=== PATIENT | female | born 1945 | race Caucasian/White ===

== ENCOUNTER 2016-09-25 23:19 | Emergency (ER) | payer MEDICARE, OTHER ==
[~2016-09-25] VITALS: Ht 165.1 cm; Wt 154.6 kg
[2016-09-25 23:24] VITALS: BP 181/68; PULSE 93; RESP 16; O2SAT 94
--- NOTE | 2016-09-25 23:45 | ED.REPORT ---
HPI-General Illness Date of Service Sep 25, 2016 ED Provider: Dr. Ozuna Pt is a 71 year old female with a hx of DM, thyroid, CHF, COPD, asthma, and chronic knee pain presenting to the ED complaining of bilateral knee pain worsened in the last few weeks. Associated symptoms include LE swelling. She states that she has fallen 3 times in the last month, and that the pain is so bad she doesn't want to get out of bed. She has been diagnosed with arthritis in both knees, but does not believe that this is all it is. Denies any fever, symptoms of gout, or any head injury. Nursing Notes Stated Complaint: BILATERAL KNEE PAIN Chief Complaint: General Complaint Nursing Notes Reviewed: Yes Allergies: Coded Allergies: lisinopril (Verified Allergy, Mild, COUGH, 09/25/16) lincomycin (Verified Allergy, Unknown, 09/25/16) Uncoded Allergies: LEVITHYROZINE (Allergy, Severe, THROAT, 09/25/16) BACTRIUM (Allergy, Intermediate, DIARRHEA, ITCHING, RASH, 09/25/16) KENLOG (Allergy, Intermediate, ITCHING, 09/25/16) LEVIQUIN (Allergy, Intermediate, 09/25/16) METFORMIM (Allergy, Intermediate, DIARRHEA, 09/25/16) YELLOW DYES (Allergy, Intermediate, RASH, 09/25/16) GLYBURID (Allergy, Mild, DIARRHEA, 09/25/16) SULFA (Allergy, Mild, 09/25/16) ZITHROMYCIN (Allergy, Mild, HIVES, 09/25/16) Scheduled Famotidine (Pepcid) 20 Mg Tablet 20 MG PO BID Sulindac (Sulindac) 200 Mg Tablet 200 MG PO BID Scheduled PRN Naproxen (Naprosyn) 500 Mg Tablet 500 MG PO BID PRN PRN For Pain General Time Seen by MD: 23:45 Chief Complaint Other (Bilateral knee pain) Hx Obtained From: Patient Arrived By: Walk-in Sudden in Onset?: No Onset Occurred: More than a week ago... (>6 months) Symptom Duration: Waxes and wanes Location: : Knee left: Knee right Quality: Painful Severity: Current: Severe Severity: Maximum: Severe Recent Healthcare: No recent doctor visit, No recent hospitalization Similar Sx Previous: Yes Past Medical History Past Medical History Thyroid Arthritis Psoriasis Reports: Asthma, COPD, Congestive heart failure, Diabetes mellitus Past Surgical History denies Smoking History Unknown if Ever Smoker Ambulatory Status Walker Review of Systems Full Review of Systems Constitutional: Denies: Fever Musculoskeletal: Reports: Extremity swelling, Joint pain, Denies: Extremity pain Skin: Denies Rash Neurologic: Denies: Headache Complete sys rev & neg: except as marked. Physical Exam Vital Signs Vital Signs Date Time Temp Pulse Resp B/P Pulse Ox O2 Delivery O2 Flow Rate FiO2 09/26/16 02:43 82 20 149/62 96 Room Air 09/25/16 23:24 36.6 93 16 181/68 94 Room Air Initial VS: Reviewed Head / Eyes: Atraumatic, Normocephalic, PERRL ENT: Mucous membranes moist, Conjunctiva normal, No scleral icterus Neck: Supple, Non-tender, Full range of motion Respiratory: Breath sounds normal, Clear to auscultation, No respiratory distress Cardiovascular: Regular rate & rhythm, Heart sounds normal, Intact distal pulses Abdomen / GI: Soft, Non-tender, No guarding, No rebound, No distention Skin: Warm, Dry, No cyanosis Neurologic: Alert, Oriented, Nonfocal Psychiatric: Mood/affect normal, Behavior normal, Normal thought content General/Constitutional: Awake, Alert Appearance / Presentation: Positive: Obese, morbidly Wrist / Hand: Atraumatic, Inspection NL, No deformity, Neurologic intact, Vascular intact No synnovitis of knuckles. Distal joint deformity consistent with osteoarthritis. Lower Extremity / Pelvis / MS: No deformity, Neurologic intact, Vascular intact Bilateral 2+ edema in the legs. No knee effusions. Knees held in hyperextended posture. ROM guarded. Interpretation & Diagnostics Lab Results Interpretation Result Diagram: 09/26/16 0038 09/26/16 0038 Test 09/26/16 00:38 09/26/16 01:17 09/26/16 01:25 White Blood Count 10.8th/mm3 (3.8-10.1) Red Blood Count 4.11mil/mm3 (3.90-5.20) Hemoglobin 12.6g/dL (12.0-15.6) Hematocrit 39.1% (35.0-46.0) Mean Corpuscular Volume 95.1fL (81-100) Mean Corpuscular Hemoglobin 30.7pg (27.0-35.0) Mean Corpuscular Hemoglobin Concent 32.2% (32.0-37.0) Red Cell Distribution Width 12.7% (12.3-15.4) Platelet Count 218bil/L (150-400) Neutrophils (%) (Auto) 63.2% (40-74) Lymphocytes (%) (Auto) 25.3% (14-46) Monocytes (%) (Auto) 9.7% (4-12) Eosinophils (%) (Auto) 1.3% (0-5) Basophils (%) (Auto) 0.3% (0-3) Erythrocyte Sedimentation Rate 45mm/hr (0-40) Sodium Level 141mEq/L (134-144) Potassium Level 4.0mEq/L (3.5-5.2) Chloride Level 100mEq/L (97-108) Carbon Dioxide Level 25mmol/L (18-29) Blood Urea Nitrogen 17mg/dL (8-27) Creatinine 0.81mg/dL (0.57-1.00) Estimat Glomerular Filtration Rate 100mL/min (>59) Glucose Level 120mg/dL (60-99) Uric Acid 6.2mg/dL (2.6-7.2) Calcium Level 9.3mg/dL (8.5-10.1) Magnesium Level 1.9mg/dL (1.6-2.6) Total Bilirubin 0.8mg/dL (0.0-1.2) Aspartate Amino Transf (AST/SGOT) 38U/L (0-50) Alanine Aminotransferase (ALT/SGPT) 34U/L (0-32) Alkaline Phosphatase 100U/L (25-165) Pro-B-Type Natriuretic Peptide 460.2pg/mL (0-301) Total Protein 7.4g/dL (6.4-8.4) Albumin 3.6g/dL (3.4-5.0) Thyroid Stimulating Hormone (TSH) 0.046uIU/mL (0.450-4.500) Free Thyroxine 1.24ng/dL (0.82-1.77) Hold Rivera Top Tube Received (Received) Urine Color Dark yellow (YELLOW) Urine Appearance Slightly cloudy Urine pH 5.5 (5.0-8.0) Urine Specific [place] 1.027 (1.003-1.035) Urine Protein Tracemg/dL (NEG,TRACE) Urine Glucose (UA) Negativemg/dL (NEGATIVE) Urine Ketones Negativemg/dL (NEGATIVE) Urine Occult Blood Negative (NEGATIVE) Urine Nitrite Negative (NEGATIVE) Urine Bilirubin Negative (NEGATIVE) Urine Urobilinogen Normalmg/dL (NORMAL) Urine Leukocyte Esterase Negative (NEGATIVE) Urine RBC 0-2/hpf (0-2) Urine WBC 0-5/hpf (0-5) Urine Epithelial Cells Moderate/hpf (NONE-MOD) Urine Crystals None seen (NONE SEEN) Urine Bacteria Few/hpf (NONE-FEW) Urine Hyaline Casts None/lpf (NONE) Urine Granular Casts None seen (NONE SEEN) Urine Waxy Casts None seen (NONE SEEN) Urine Red Blood Cell Casts None seen (NONE SEEN) Urine White Blood Cell Casts None seen (NONE SEEN) Urine Mucus Present (None Seen) Urine Trichomonas None seen (NONE SEEN) Urine Yeast None (NONE SEEN) Urinalysis Comment None Urine Culture Reflexed Not indicated X-Ray Interpretation Xray Interpretation: Right Knee: Medial compartment narrowed, medial collateral ligament spurring. Spurring into ACL and PCL. Severe osteoarthritis. Left Knee: Not as spurred as right knee. Right hand: No erosion along joint lines. Looks like osteoarthritis. Mild cystic changes. Nothing suggestive of rheumatoid arthritis. X-Ray Ordered: Hand right, Knee right, Knee left Interpretation / Wet Read by: Wet read ED physician Re-Eval/Medical Decision Med Decision/Clinical Course 71-year-old female with severe knee pain, apparently due to osteoarthritis. She has multiple complicating issues including morbid obesity, diabetes, psoriasis without diagnosed psoriatic arthritis, and chronic leg edema. X-rays of her knees today reveal medial compartment narrowing bilaterally with moderate spurring. Hand films have mild cystic changes on a single IP joint and no other findings of other than osteoarthritic changes. She is referred to her PCP, with appointment already arranged. She is referred also to the orthopedic office for evaluation. Her situation is complex with her obesity and her edema. However, her pain is limiting her activity severely enough that weight control has again become an issue. She might conceivably benefit from bariatric surgery followed by knee surgery, and we discussed this in some detail. Her peripheral edema is mild to moderate at this point, but she does occasionally develop significant skin changes. Recommended mild compression hose, elevation, and again stressed the importance of weight loss to reduce the back pressure on her venous and lymph return. She improved here as far as her pain with Toradol. She is discharged with a prescription for sulindac, as the NSAID less likely to cause worsening peripheral edema. Time of Eval: 02:03 Patient Status: Condition improved Re-Evaluation/Progress Note: Pt feeling much better after Toradol. Discussed x ray results and plan for discharge. Pt understands and agrees with plan. Counseled Regarding: Diagnosis, Lab results, Need for follow-up, When/why to return to ED Discharge & Departure Primary Impression: Osteoarthritis Osteoarthritis location: multiple joints Osteoarthritis type: unspecified Qualified Code: M15.9 - Polyosteoarthritis, unspecified Additional Impressions: Morbid obesity Obesity type: unspecified obesity type Qualified Code: E66.01 - Morbid ( severe) obesity due to excess calories Psoriasis Peripheral edema Knee pain Laterality: unspecified laterality Chronicity: unspecified Qualified Code: M25.569 - Pain in unspecified knee Diabetes type 2, controlled Diabetes mellitus complication status: without complication Diabetes mellitus termite control technician insulin use: unspecified half-way insulin use status Qualified Code: E11.9 - Type 2 diabetes mellitus without complications Disposition: Home Discharge Condition All VS Reviewed: Yes Condition: Improved Patient Instructions: Arthritis (ED) Additional Instructions: Use your walker always. Be very careful to avoid falling. Go through the house and eliminate trip hazards. Begin using compressive stockings such as soccer hose during the day. Elevate her legs whenever possible. Begin sulindac twice daily with food. Alternatively, you can use Naprosyn twice daily, also with food. Take Pepcid twice daily as long as her on sulindac or Naprosyn Follow-up with your scheduled appointment. Follow-up also with orthopedics in the office. Return if any immediate issues. All of your labs will be available for your doctor at the time of your visit. Referrals: Daniel Willoughby DO [facility] [employer] Attestation Portions of this note were transcribed by Gay [place]. I, Dr. Ozuna personally performed the history, physical exam and medical decision-making; I reviewed and confirmed the accuracy of the information in the transcribed note. Signed by: Shan Santiago, 09/26/2016 at 0243. copies to: Daniel Willoughby DO; [facility] Roger Ozuna MD Sep 25, 2016 23:45 GAY [place] Sep 25, 2016 23:54
[2016-09-26 00:55] LABS: BASOPHILS % (AUTO) 0.3 % (0-3); EOSINOPHILS % (AUTO) 1.3 % (0-5); MONOCYTES % (AUTO) 9.7 % (4-12); Mean Corpuscular Hemoglobin 30.7 pg (27.0-35.0); Mean Corpuscular Volume 95.1 fL (81-100); NEUTROPHILS % (AUTO) 63.2 % (40-74); Platelet Count 218 bil/L (150-400)
[2016-09-26 01:34] LABS: ERYTHROCYTE SEDIMENTATION RATE 45 mm/hr (0-40)
[2016-09-26 01:53] LABS: Magnesium 1.9 mg/dL (1.6-2.6)
[2016-09-26 02:03] LABS: APPEARANCE,URINE SLIGHTLY CLOUDY (CLEAR,HAZY); COLOR,URINE DARK YELLOW (YELLOW); OCCULT BLOOD,URINE NEGATIVE (NEGATIVE); PH,URINE 5.5 (5.0-8.0); UROBILINOGEN,URINE NORMAL (NORMAL)
[2016-09-26] MEDS ORDERED: SULI200T79 PO (02:24)
[2016-09-26] MEDS ORDERED: FAMO20T PO (02:24)
[2016-09-26] MEDS ORDERED: NAPR500T PO (02:24)
[2016-09-26 02:43] VITALS: BP 149/62; PULSE 82; RESP 20; O2SAT 96
--- NOTE | 2016-09-26 08:30 | DRSVH ---
PROCEDURE: XR BILAT HAND 2VW INDICATIONS: PSORIATIC ARTHRITIS TECHNIQUE: 2 views acquired of the left and right hand(s). COMPARISON: None. FINDINGS: Bones and joints: Bony alignment is normal. No periarticular osteopenia. Possible erosion involvin g the tip of the ulnar styloid process on the right.. There is mild multilevel joint narrowing and p eriarticular osteophyte formation.. No fractures or suspicious bony lesions. Soft tissues: No soft tissue calcifications. No focal soft tissue swelling. IMPRESSION: Mild multilevel joint degeneration and possible small erosion involving the tip of the ri ght ulnar styloid process. Dictated by: Angel French [facility] Interpreted: Al Robles MD on 09/26/2016 at 8:27 Transcribed by: MALIK on 09/26/2016 at 8:29 Approved by: Al Robles M.D. on 09/26/2016 at 9:16
--- NOTE | 2016-09-26 08:36 | DRSVH ---
PROCEDURE: X-RAY RIGHT KNEE, ONE OR TWO VIEWS ([id number]) INDICATIONS: knee arthritis, psoriasis hx TECHNIQUE: 2 views of the knee were acquired. COMPARISON: [facility], CR, XR KNEE 1 OR 2VW LT, 09/26/2016, 0:23. FINDINGS: Bones: No fractures or dislocations. No suspicious bony lesions. Moderate to severe narrowing of t he medial femoral tibial joint and mild narrowing of the patellofemoral knee joint. Tricompartmental osteophyte formation. Soft tissues: No joint effusion. No suspicious soft tissue calcifications. Mottled appearance of t he soft tissues. IMPRESSION: 1. Knee joint degeneration, most notably involving the medial femoral tibial joint. 2. Mottled appearance of the soft tissues likely related to edema but cellulitis cannot be excluded. Correlate clinically. Dictated by: Angel French [facility] Interpreted: Al Robles MD on 09/26/2016 at 8:34 Transcribed by: MALIK on 09/26/2016 at 8:35 Approved by: Al Robles M.D. on 09/26/2016 at 9:16
--- NOTE | 2016-09-26 09:18 | DRSVH ---
PROCEDURE: X-RAY LEFT KNEE, ONE OR TWO VIEWS ([id number]) INDICATIONS: knee arthritis, psoriasis hx TECHNIQUE: 2 views of the knee were acquired. COMPARISON: None. FINDINGS: Bones: No fractures or dislocations. No suspicious bony lesions. Moderate to severe narrowing of t he medial femorotibial joint and mild narrowing of the patellofemoral knee joint. Tricompartmental os teophyte formation. Soft tissues: No joint effusion. No suspicious soft tissue calcifications. Mottled appearance of t he soft tissues. IMPRESSION: Knee joint degeneration, most notably involving the medial femoral tibial joint. Mottled appearance of the soft tissues which is likely related to edema but underlying cellulitis can not be excluded. Recommend clinical correlation. Dictated by: Angel MANCERA Interpreted: Al Robles MD on 09/26/2016 at 8:32 Approved by: Al Robles M.D. on 09/26/2016 at 9:15
== END 2016-09-26 02:40 | disposition home or self-care (01) ==
LOC: SED 23:19
DX: M15.9 Polyosteoarthritis, unspecified (principal); E66.01 Morbid (severe) obesity due to excess calories; M25.561 Pain in right knee; M25.562 Pain in left knee; E11.9 Type 2 diabetes mellitus without complications; L40.9 Psoriasis, unspecified; R60.0 Localized edema; I50.9 Heart failure, unspecified; J45.909 Unspecified asthma, uncomplicated; J44.9 Chronic obstructive pulmonary disease, unspecified; Z88.1 Allergy status to other antibiotic agents; Z88.8 Allergy status to other drugs, medicaments and biological substances
CPT/HCPCS: 36415; 73120; 73560; 80053; 81000; 83735; 83880; 84439; 84443; 84550; 85025; 85651; 86038; 86430; 96372; 99284; J1885

== ENCOUNTER 2016-10-05 23:01 | Emergency (ER) | payer MEDICARE, OTHER ==
[~2016-10-05] VITALS: Ht 165.1 cm; Wt 154.6 kg
[~2016-10-05 23:01] MED LIST: FAMO20T PO; NAPR500T PO; SULI200T79 PO
[2016-10-05 23:32] VITALS: BP 133/64; PULSE 71; RESP 20; O2SAT 95
--- NOTE | 2016-10-06 01:10 | ED.REPORT ---
HPI-General Illness Date of Service Oct 06, 2016 ED Provider: Harley Burgos MD A 71 year old female with a history of diabetes mellitus, thyroid disease, CHF, COPD, asthma, and chronic knee pain presents to the ED with nausea and diarrhea that began this afternoon. Recent associated symptoms include hypersomnia, fatigue, dizziness, lower extremity edema and SOB that is exacerbated by exertion. The patient has been using her nebulizer more frequently over the past few days. She denies any vomiting or hematochezia. Patient was seen in the ED on 09/25 for osteoarthritis and frequent falls. She was discharged in good condition with sulindac/Naprosyn and Pepcid. Nursing Notes Stated Complaint: NAUSEA, DIZZINESS Chief Complaint: General Complaint Nursing Notes Reviewed: Yes Allergies: Coded Allergies: lisinopril (Verified Allergy, Mild, COUGH, 09/25/16) Sulfa (Sulfonamide Antibiotics) (Verified Allergy, Unknown, 10/05/16) azithromycin (Verified Allergy, Unknown, 10/05/16) glyburide (Verified Allergy, Unknown, 10/05/16) levofloxacin (Verified Allergy, Unknown, 10/05/16) levothyroxine (Verified Allergy, Unknown, 10/05/16) lincomycin (Verified Allergy, Unknown, 09/25/16) metformin (Verified Allergy, Unknown, 10/05/16) sulfamethoxazole (Verified Allergy, Unknown, 10/05/16) triamcinolone (Verified Allergy, Unknown, 10/05/16) trimethoprim (Verified Allergy, Unknown, 10/05/16) Uncoded Allergies: YELLOW DYES (Allergy, Intermediate, RASH, 09/25/16) Scheduled Famotidine (Pepcid) 20 Mg Tablet 20 MG PO BID Sulindac (Sulindac) 200 Mg Tablet 200 MG PO BID Scheduled PRN Naproxen (Naprosyn) 500 Mg Tablet 500 MG PO BID PRN PRN For Pain General Time Seen by MD: 01:09 Chief Complaint Diarrhea Hx Obtained From: Patient Arrived By: Walk-in Sudden in Onset?: No Onset Occurred: 9 - 12 hours ago Symptom Duration: Since onset Associated with: Reports: Nausea, Shortness of breath, Denies: Vomiting Pertinent Negative: Pt denies other symptoms Recent Healthcare: No recent hospitalization, Recent doctor visit Past Medical History Past Medical History Thyroid Arthritis Psoriasis Reports: Asthma, COPD, Congestive heart failure, Diabetes mellitus Past Surgical History None reported. Smoking History Unknown if Ever Smoker Social History Other Social History: Good social support, Local resident Ambulatory Status Walker Review of Systems + hypersomnia Full Review of Systems Constitutional: Reports: Fatigue Respiratory: Reports: Shortness of breath GI: Reports: Diarrhea, Nausea Neurologic: Reports: Dizziness Complete sys rev & neg: except as marked. Physical Exam Vital Signs Vital Signs Date Time Temp Pulse Resp B/P Pulse Ox O2 Delivery O2 Flow Rate FiO2 10/06/16 04:46 78 22 151/53 94 Room Air 10/06/16 02:38 64 18 98 Room Air 10/05/16 23:32 36.6 71 20 133/64 95 Room Air Initial VS: Reviewed, Vital signs normal Neck: Supple, Non-tender, Full range of motion Extremities: Vascular intact, Neuro intact, No swelling, No tenderness Skin: Warm, Dry, No cyanosis Neurologic: Alert, Oriented, Nonfocal Psychiatric: Mood/affect normal, Behavior normal, Normal thought content General/Constitutional: Awake, Alert, No acute distress Appearance / Presentation: Positive: Obese, morbidly Head / Eyes: Atraumatic, Normocephalic, PERRL, EOMI Respiratory / Chest: Atraumatic, Breath sounds NL, Breath sounds = bilat, No respiratory distress Cardiovascular: Heart rate NL, Regular rhythm, Heart sounds NL Lower Ext Edema: Positive: Bilateral 3+ Abdomen: Atraumatic, Soft, Non-tender Interpretation & Diagnostics Lab Results Interpretation Result Diagram: 10/06/16 0325 10/06/16 0325 Test 10/06/16 03:25 10/06/16 04:30 White Blood Count 14.1th/mm3 (3.8-10.1) Red Blood Count 4.28mil/mm3 (3.90-5.20) Hemoglobin 13.3g/dL (12.0-15.6) Hematocrit 40.3% (35.0-46.0) Mean Corpuscular Volume 94.2fL (81-100) Mean Corpuscular Hemoglobin 31.1pg (27.0-35.0) Mean Corpuscular Hemoglobin Concent 33.0% (32.0-37.0) Red Cell Distribution Width 12.8% (12.3-15.4) Platelet Count 247bil/L (150-400) Neutrophils (%) (Auto) 72.9% (40-74) Lymphocytes (%) (Auto) 17.1% (14-46) Monocytes (%) (Auto) 8.7% (4-12) Eosinophils (%) (Auto) 1.0% (0-5) Basophils (%) (Auto) 0.1% (0-3) Sodium Level 138mEq/L (134-144) Potassium Level 4.4mEq/L (3.5-5.2) Chloride Level 99mEq/L (97-108) Carbon Dioxide Level 19mmol/L (18-29) Blood Urea Nitrogen 30mg/dL (8-27) Creatinine 1.05mg/dL (0.57-1.00) Estimat Glomerular Filtration Rate 74mL/min (>59) Glucose Level 113mg/dL (60-99) Calcium Level 9.8mg/dL (8.5-10.1) Magnesium Level 1.7mg/dL (1.6-2.6) Total Bilirubin 0.9mg/dL (0.0-1.2) Aspartate Amino Transf (AST/SGOT) 34U/L (0-50) Alanine Aminotransferase (ALT/SGPT) 25U/L (0-32) Alkaline Phosphatase 102U/L (25-165) Troponin T 0.010ug/L (0.0-0.011) Pro-B-Type Natriuretic Peptide 414.5pg/mL (0-301) Total Protein 8.6g/dL (6.4-8.4) Albumin 3.8g/dL (3.4-5.0) Prothrombin Time 10.6sec (8.1-12.5) Prothromb Time International Ratio 0.99ratio D-Dimer 1.05mg/L FEU (<0.50) Urine Color Yellow (YELLOW) Urine Appearance Hazy (CLEAR,HAZY) Urine pH 5.0 (5.0-8.0) Urine Specific [place] 1.020 (1.003-1.035) Urine Protein Negativemg/dL (NEG,TRACE) Urine Glucose (UA) Negativemg/dL (NEGATIVE) Urine Ketones Negativemg/dL (NEGATIVE) Urine Occult Blood Negative (NEGATIVE) Urine Nitrite Negative (NEGATIVE) Urine Bilirubin Negative (NEGATIVE) Urine Urobilinogen Normalmg/dL (NORMAL) Urine Leukocyte Esterase Small (NEGATIVE) Urine RBC 0-2/hpf (0-2) Urine WBC 0-5/hpf (0-5) Urine Epithelial Cells Moderate/hpf (NONE-MOD) Urine Crystals Oxalic acid crystals (NONE Urine Bacteria Moderate/hpf (NONE-FEW) Urine Hyaline Casts >20/lpf (NONE) Urine Granular Casts None seen (NONE SEEN) Urine Waxy Casts None seen (NONE SEEN) Urine Red Blood Cell Casts None seen (NONE SEEN) Urine White Blood Cell Casts None seen (NONE SEEN) Urine Mucus Present (None Seen) Urine Trichomonas None seen (NONE SEEN) Urine Yeast None (NONE SEEN) Urinalysis Comment None Urine Culture Reflexed Indicated Hold Rivera Top Tube Received (Received) Lab Results Interpretation: Elevated white blood count, mildly elevated BUN/creatinine, normal urine ECG Interpretation ECG Interpretation: Sinus Rhythm Rate 88 Low voltage, extremity and precordial leads Time: 02:33 Interpreted by: ED physician X-Ray Chest Interpretation Chest Xray Interpretation: No acute abnormalities Interpretation / Wet Read by: Wet read ED physician Re-Eval/Medical Decision Med Decision/Clinical Course 71-year-old female who presents with generalized aches and vomiting. She does appear dehydrated. Labs show some elevated BUN/creatinine an elevated white count. She was hydrated and improve quite dramatically. She will be discharged home to follow up with her primary doctor. Time of Eval: 05:25 Patient Status: Condition improved Re-Evaluation/Progress Note: Patient is re-evaluated. Her symptoms have improved upon recheck. All questions are addressed. She is informed of her results and diagnosis. The patient understands and agrees with the intended treatment plan. Counseled Regarding: Diagnosis, Lab results, Need for follow-up, When/why to return to ED Discharge & Departure Primary Impression: Dehydration Additional Impression: Gastroenteritis Disposition: Home Discharge Condition All VS Reviewed: Yes Condition: Improved Patient Instructions: Acute Diarrhea (ED), Acute Nausea and Vomiting (ED), Dehydration (ED) Additional Instructions: No evidence of serious issues on laboratory or x-rays. Your kidney function tests, BUN/creatinine, are mildly elevated. You were hydrated with normal saline by IV. Drink plenty of fluids. Follow-up with your regular doctor for further evaluation and treatment. Wear the ESMER hose as needed to attempt to return some of that fluid. Referrals: NOPCP (PCP) [facility] Scribe Attestation Portions of this note were transcribed by Shirley York. I, Dr. Burgos personally performed the history, physical exam and medical decision-making; I reviewed and confirmed the accuracy of the information in the transcribed note. Harley Burgos MD Oct 06, 2016 01:10 SHIRLEY YORK Oct 06, 2016 01:17
[2016-10-06] MEDS ORDERED: Albuterol-Ipratropium 3 mL Inhalation Solution NEB ONE (01:15)
[2016-10-06] MEDS ORDERED: 0.9% Sodium Chloride 1,000 ML IV ONE (01:15)
[2016-10-06] MEDS ORDERED: Albuterol 2.5 mg/3 mL Inhalation Solution NEB ONE (01:15)
[2016-10-06 02:38] VITALS: PULSE 64; RESP 18; O2SAT 98
[2016-10-06 03:39] LABS: BASOPHILS % (AUTO) 0.1 % (0-3); MONOCYTES % (AUTO) 8.7 % (4-12); Mean Corpuscular Hemoglobin 31.1 pg (27.0-35.0); Mean Corpuscular Volume 94.2 fL (81-100); NEUTROPHILS % (AUTO) 72.9 % (40-74); Platelet Count 247 bil/L (150-400)
[2016-10-06 03:58] LABS: TROPONIN T 0.01 ug/L (0.0-0.011)
[2016-10-06 04:09] LABS: Magnesium 1.7 mg/dL (1.6-2.6)
[2016-10-06 04:46] VITALS: BP 151/53; PULSE 78; RESP 22; O2SAT 94
[2016-10-06 04:57] LABS: APPEARANCE,URINE HAZY (CLEAR,HAZY); COLOR,URINE YELLOW (YELLOW)
[2016-10-06 04:58] LABS: OCCULT BLOOD,URINE NEGATIVE (NEGATIVE); UROBILINOGEN,URINE NORMAL (NORMAL)
[2016-10-06 04:59] LABS: D-Dimer 1.05 mg/L FEU (<0.50); INR 0.99 ratio
[2016-10-06] MEDS ORDERED: 0.9% Sodium Chloride 500 ML IV ONE (05:30)
[2016-10-06 06:30] VITALS: BP 125/58; PULSE 78; RESP 24; O2SAT 94
--- NOTE | 2016-10-06 07:57 | DRSVH ---
PROCEDURE: X-RAY CHEST, TWO VIEWS ([id number]) INDICATIONS: dyspnea TECHNIQUE: 2 views of the chest were acquired. COMPARISON: None. FINDINGS: Surgical changes and devices: None. Lungs and pleura: No pleural effusions or pneumothorax. Lungs are clear. Mediastinum: Mediastinal contours are normal. Heart size is normal. Bones and chest wall: No suspicious bony abnormalities. Soft tissues appear unremarkable. IMPRESSION: Source of dyspnea is not seen. Dictated by: Al Robles M.D. on 10/06/2016 at 7:54 Approved by: Al Robles M.D. on 10/06/2016 at 7:54
== END 2016-10-06 06:46 | disposition home or self-care (01) ==
LOC: SED 23:01
DX: K52.9 Noninfective gastroenteritis and colitis, unspecified (principal); E86.0 Dehydration; R60.0 Localized edema; R06.02 Shortness of breath; I50.9 Heart failure, unspecified; J44.9 Chronic obstructive pulmonary disease, unspecified; E11.9 Type 2 diabetes mellitus without complications; Z88.1 Allergy status to other antibiotic agents; Z88.2 Allergy status to sulfonamides; Z88.8 Allergy status to other drugs, medicaments and biological substances
CPT/HCPCS: 36415; 71020; 80053; 81000; 83735; 83880; 84484; 85025; 85378; 85610; 87086; 87088; 93005; 94640; 94664; 96360; 96361; 99285; J7030; J7040; J7613; J7620